=== PATIENT | female | born 1940 | race African-American/Black ===

== ENCOUNTER 2018-02-03 12:11 | Emergency (ER) | payer MEDICARE ==
[2018-02-03] MEDS: SOD CHLORIDE 0.9% 500 ML IV (12:37)
[2018-02-03 12:46] LABS: ADD MAN DIFF? NO
[2018-02-03 12:49] LABS: BASOPHILS % 0.4 % (0.0-2.0); EOSINOPHILS # 0.5 10^3/ul (0.0-0.5); EOSINOPHILS % 5.4 % (0.0-7.0); HEMATOCRIT 38.7 % (37.0-47.0); HEMOGLOBIN 12.5 g/dl (12.0-16.0); LYMPHOCYTES # 4.2 10^3/ul (0.8-2.9); LYMPHOCYTES % 41.8 % (15.0-51.0); MEAN CORPUSCULAR HGB CONC 32.3 g/dl (32.0-37.0); MEAN CORPUSCULAR VOLUME 86.8 fl (82.0-101.0); MEAN PLATELET VOLUME 11.3 fl (7.4-10.4); MONOCYTE # 0.7 10^3/ul (0.3-0.9); MONOCYTES % 7.3 % (0.0-11.0); NEUTROPHIL # 4.5 10^3/ul (1.6-7.5); NEUTROPHILS % 44.8 % (39.0-77.0); PLATELET COUNT 311 10^3/UL (140-415); RED BLOOD COUNT 4.46 10^6/ul (4.20-5.40); RED CELL DISTRIBUTION WIDTH 14.4 % (11.5-14.5)
[2018-02-03 12:49] LABS: WHITE BLOOD COUNT 10.1 10^3/ul (4.8-10.8)
[2018-02-03 13:07] LABS: ANION GAP 17 (8-16); BLOOD UREA NITROGEN 18 mg/dl (7-20); CALCIUM 10.1 mg/dl (8.4-10.2); CARBON DIOXIDE 27 mmol/L (21-31); CHLORIDE 105 mmol/L (97-110); CREATININE 0.57 mg/dl (0.44-1.00); GLUCOSE 104 mg/dl (70-220); SODIUM 145 mmol/L (135-144)
[2018-02-03 13:08] LABS: PROTIME 14.4 Sec (11.9-14.9); PT RATIO 1.1
[2018-02-03 13:21] LABS: TROPONIN-I < 0.012 ng/ml (0.00-0.12)
[2018-02-03 15:04] LABS: ADD UMIC YES; UR ASCORBIC ACID NEGATIVE (NEGATIVE); UR BILIRUBIN (Dip) NEGATIVE (NEGATIVE); UR BLOOD (Dip) 3+ mg/dL (NEGATIVE); UR CLARITY TURBID (CLEAR); UR COLOR RED (YELLOW); UR GLUCOSE (Dip) 1+ mg/dL (NEGATIVE); UR KETONES (Dip) NEGATIVE (NEGATIVE); UR LEUKOCYTE ESTERASE (Dip) 2+ Leu/ul (NEGATIVE); UR NITRITE (Dip) NEGATIVE (NEGATIVE); UR RBC > 182 /HPF (0-5); UR SPECIFIC GRAVITY (Dip) 1.021 (1.003-1.030); UR TOTAL PROTEIN (Dip) 2+ mg/dl (NEGATIVE); UR UROBILINOGEN (Dip) NEGATIVE (NEGATIVE); UR WBC > 182 /HPF (0-5)
== END 2018-02-03 15:35 | disposition home or self-care (01) ==
LOC: E/R 12:11
DX: S09.90XA Unspecified injury of head, initial encounter (principal); N30.01 Acute cystitis with hematuria; W22.8XXA Striking against or struck by other objects, initial encounter; Y92.9 Unspecified place or not applicable
CPT/HCPCS: 36415; 70450; 71045; 80048; 81001; 84484; 85025; 85610; 85730; 87086; 93005; 99285-25

== ENCOUNTER 2018-02-09 15:39 | Inpatient (IN) | payer MEDICARE ==
[2018-02-09 16:39] LABS: ADD MAN DIFF? NO
[2018-02-09 16:41] LABS: WHITE BLOOD COUNT 13.2 10^3/ul (4.8-10.8)
[2018-02-09 16:41] LABS: BASOPHIL # 0.1 10^3/ul (0.0-0.1); BASOPHILS % 0.5 % (0.0-2.0); EOSINOPHILS # 0.2 10^3/ul (0.0-0.5); EOSINOPHILS % 1.4 % (0.0-7.0); HEMATOCRIT 37.8 % (37.0-47.0); HEMOGLOBIN 12.1 g/dl (12.0-16.0); LYMPHOCYTES # 2.7 10^3/ul (0.8-2.9); LYMPHOCYTES % 20.2 % (15.0-51.0); MEAN CORPUSCULAR HEMOGLOBIN 27.8 pg (29.0-33.0); MEAN CORPUSCULAR VOLUME 86.7 fl (82.0-101.0); MONOCYTE # 1.2 10^3/ul (0.3-0.9); MONOCYTES % 9.1 % (0.0-11.0); NEUTROPHIL # 9.1 10^3/ul (1.6-7.5); NEUTROPHILS % 68.5 % (39.0-77.0); PLATELET COUNT 267 10^3/UL (140-415); RED BLOOD COUNT 4.36 10^6/ul (4.20-5.40); RED CELL DISTRIBUTION WIDTH 13.9 % (11.5-14.5)
[2018-02-09] MEDS: ACETAMINOPHEN 500 MG TAB PO (16:48)
[2018-02-09] MEDS: SOD CHLORIDE 0.9% 500 ML IV (16:52)
[2018-02-09 17:21] LABS: ANION GAP 19 (8-16); BLOOD UREA NITROGEN 25 mg/dl (7-20); CARBON DIOXIDE 29 mmol/L (21-31); CHLORIDE 99 mmol/L (97-110); CREATININE 0.61 mg/dl (0.44-1.00); GLUCOSE 95 mg/dl (70-220); POTASSIUM 3.7 mmol/L (3.5-5.1); SODIUM 143 mmol/L (135-144)
[2018-02-09] MEDS ORDERED: ACETAMINOPHEN 325 MG TAB PO ×2 (18:00)
[2018-02-09] MEDS ORDERED: ONDANSETRON 4 MG INJ IV ×2 (18:00)
[2018-02-09] MEDS ORDERED: DOCUSATE SODIUM 100 MG CAP PO (18:00)
[2018-02-09] MEDS ORDERED: MAGNESIUM HYDROXIDE 30ML CUP PO (18:00)
[2018-02-09] MEDS ORDERED: MECLIZINE 25 MG TAB PO (18:00)
[2018-02-09] MEDS ORDERED: NACL 0.9% 3 ML SYG IV (18:00)
[2018-02-09] MEDS: morphine 2 MG INJ IV (20:44)
[2018-02-09] MEDS: NITROFURANTOIN (SR) 100 MG CAP PO (22:22)
[2018-02-09] MEDS: METOPROLOL (XL) 25 MG TAB PO (22:23)
[2018-02-09] MEDS: SOD CHLORIDE 0.9% 1,000 ML IV (22:24)
[2018-02-09] MEDS: HEPARIN 5,000 UNIT/0.5 ML VIAL SC (22:33)
[2018-02-10] MEDS: morphine 2 MG INJ IV (02:54)
[2018-02-10 05:04] LABS: ADD MAN DIFF? NO
[2018-02-10 05:07] LABS: BASOPHIL # 0.1 10^3/ul (0.0-0.1); BASOPHILS % 0.5 % (0.0-2.0); EOSINOPHILS # 0.4 10^3/ul (0.0-0.5); HEMOGLOBIN 10.9 g/dl (12.0-16.0); LYMPHOCYTES # 3.1 10^3/ul (0.8-2.9); LYMPHOCYTES % 30.7 % (15.0-51.0); MEAN CORPUSCULAR HEMOGLOBIN 27.7 pg (29.0-33.0); MEAN CORPUSCULAR HGB CONC 32.1 g/dl (32.0-37.0); MEAN CORPUSCULAR VOLUME 86.3 fl (82.0-101.0); MEAN PLATELET VOLUME 10.7 fl (7.4-10.4); MONOCYTE # 1.1 10^3/ul (0.3-0.9); NEUTROPHIL # 5.4 10^3/ul (1.6-7.5); NEUTROPHILS % 53.5 % (39.0-77.0); PLATELET COUNT 244 10^3/UL (140-415); RED BLOOD COUNT 3.94 10^6/ul (4.20-5.40)
[2018-02-10 05:07] LABS: WHITE BLOOD COUNT 10.2 10^3/ul (4.8-10.8)
[2018-02-10 05:33] LABS: ALANINE AMINOTRANSFERASE 15 IU/L (13-69); ALBUMIN 3.6 g/dl (3.3-4.9); ALBUMIN/GLOBULIN RATIO 0.97; ALKALINE PHOSPHATASE 83 IU/L (42-121); ANION GAP 13 (8-16); ASPARTATE AMINO TRANSFERASE 14 IU/L (15-46); BILIRUBIN,INDIRECT 0.2 mg/dl (0-1.1); BILIRUBIN,TOTAL 0.2 mg/dl (0.2-1.3); BLOOD UREA NITROGEN 27 mg/dl (7-20); CALCIUM 9.6 mg/dl (8.4-10.2); CARBON DIOXIDE 28 mmol/L (21-31); CHLORIDE 106 mmol/L (97-110); CREATININE 0.57 mg/dl (0.44-1.00); GLUCOSE 104 mg/dl (70-220); MAGNESIUM 1.5 mg/dl (1.7-2.5); POTASSIUM 3.4 mmol/L (3.5-5.1); SODIUM 144 mmol/L (135-144); TOTAL PROTEIN 7.3 g/dl (6.1-8.1)
[2018-02-10] MEDS: PANTOPRAZOLE (EC) 40 MG TAB PO (06:10)
[2018-02-10] MEDS: HEPARIN 5,000 UNIT/0.5 ML VIAL SC ×3 (06:14→21:05)
[2018-02-10] MEDS: HYDROCODONE/APAP (5/325) TAB PO ×2 (06:15→12:39)
[2018-02-10] MEDS: NITROFURANTOIN (SR) 100 MG CAP PO ×2 (09:24→21:01)
[2018-02-10] MEDS: METOPROLOL (XL) 25 MG TAB PO ×2 (09:24→21:02)
[2018-02-10] MEDS: POTASSIUM CHLORIDE (SR) 20 MEQ TAB PO (12:37)
[2018-02-10] MEDS: MAGNESIUM OXIDE 400 MG TAB PO (12:37)
[2018-02-10] MEDS: NICOTINE (14 MG/24 HR) PATCH TRANSDERM (14:18)
[2018-02-10] MEDS: LORAZEPAM 0.5 MG TAB PO (22:56)
[2018-02-11] MEDS: PANTOPRAZOLE (EC) 40 MG TAB PO (05:08)
[2018-02-11] MEDS: HEPARIN 5,000 UNIT/0.5 ML VIAL SC ×3 (05:21→22:05)
[2018-02-11 05:34] LABS: ADD MAN DIFF? NO
[2018-02-11 05:40] LABS: WHITE BLOOD COUNT 9.4 10^3/ul (4.8-10.8)
[2018-02-11 05:40] LABS: BASOPHIL # 0.1 10^3/ul (0.0-0.1); BASOPHILS % 0.7 % (0.0-2.0); EOSINOPHILS # 0.3 10^3/ul (0.0-0.5); EOSINOPHILS % 3.6 % (0.0-7.0); HEMATOCRIT 31.8 % (37.0-47.0); HEMOGLOBIN 10.2 g/dl (12.0-16.0); LYMPHOCYTES # 2.8 10^3/ul (0.8-2.9); LYMPHOCYTES % 29.6 % (15.0-51.0); MEAN CORPUSCULAR HEMOGLOBIN 27.9 pg (29.0-33.0); MEAN CORPUSCULAR HGB CONC 32.1 g/dl (32.0-37.0); MEAN CORPUSCULAR VOLUME 86.9 fl (82.0-101.0); MEAN PLATELET VOLUME 11.6 fl (7.4-10.4); MONOCYTE # 0.8 10^3/ul (0.3-0.9); MONOCYTES % 8.1 % (0.0-11.0); NEUTROPHIL # 5.4 10^3/ul (1.6-7.5); NEUTROPHILS % 57.8 % (39.0-77.0); PLATELET COUNT 256 10^3/UL (140-415); RED BLOOD COUNT 3.66 10^6/ul (4.20-5.40)
[2018-02-11 05:53] LABS: ANION GAP 13 (8-16); BLOOD UREA NITROGEN 21 mg/dl (7-20); CALCIUM 9.7 mg/dl (8.4-10.2); CARBON DIOXIDE 27 mmol/L (21-31); CHLORIDE 109 mmol/L (97-110); CREATININE 0.46 mg/dl (0.44-1.00); GLUCOSE 110 mg/dl (70-220); MAGNESIUM 1.5 mg/dl (1.7-2.5); POTASSIUM 3.7 mmol/L (3.5-5.1); SODIUM 145 mmol/L (135-144)
[2018-02-11] MEDS: BISACODYL (EC) 5 MG TAB PO ×2 (05:56→06:37)
[2018-02-11] MEDS: LORAZEPAM 0.5 MG TAB PO (06:37)
[2018-02-11] MEDS: NITROFURANTOIN (SR) 100 MG CAP PO (10:20)
[2018-02-11] MEDS: NICOTINE (14 MG/24 HR) PATCH TRANSDERM (10:21)
[2018-02-11] MEDS: METOPROLOL (XL) 25 MG TAB PO ×2 (10:21→20:14)
[2018-02-11] MEDS: MAGNESIUM OXIDE 400 MG TAB PO (13:07)
[2018-02-11] MEDS: AMLODIPINE 5 MG TAB PO (13:07)
[2018-02-11] MEDS: hydrALAzine 20 MG INJ IV (17:08)
[2018-02-11] MEDS: HYDROCODONE/APAP (5/325) TAB PO (20:13)
[2018-02-12 05:10] LABS: ADD MAN DIFF? NO
[2018-02-12 05:16] LABS: BASOPHIL # 0.1 10^3/ul (0.0-0.1); BASOPHILS % 0.6 % (0.0-2.0); EOSINOPHILS # 0.3 10^3/ul (0.0-0.5); EOSINOPHILS % 3.7 % (0.0-7.0); HEMATOCRIT 33.9 % (37.0-47.0); HEMOGLOBIN 11.1 g/dl (12.0-16.0); LYMPHOCYTES # 3.2 10^3/ul (0.8-2.9); MEAN CORPUSCULAR HEMOGLOBIN 27.6 pg (29.0-33.0); MEAN CORPUSCULAR HGB CONC 32.7 g/dl (32.0-37.0); MEAN CORPUSCULAR VOLUME 84.3 fl (82.0-101.0); MEAN PLATELET VOLUME 11.3 fl (7.4-10.4); MONOCYTE # 0.8 10^3/ul (0.3-0.9); MONOCYTES % 9.4 % (0.0-11.0); NEUTROPHIL # 4.2 10^3/ul (1.6-7.5); NEUTROPHILS % 49.1 % (39.0-77.0); PLATELET COUNT 298 10^3/UL (140-415); RED BLOOD COUNT 4.02 10^6/ul (4.20-5.40); RED CELL DISTRIBUTION WIDTH 14.2 % (11.5-14.5)
[2018-02-12 05:16] LABS: WHITE BLOOD COUNT 8.6 10^3/ul (4.8-10.8)
[2018-02-12 05:35] LABS: ANION GAP 11 (8-16); BLOOD UREA NITROGEN 21 mg/dl (7-20); CALCIUM 9.8 mg/dl (8.4-10.2); CARBON DIOXIDE 30 mmol/L (21-31); CHLORIDE 105 mmol/L (97-110); CREATININE 0.55 mg/dl (0.44-1.00); GLUCOSE 107 mg/dl (70-220); MAGNESIUM 1.5 mg/dl (1.7-2.5); PHOSPHORUS 3.5 mg/dl (2.5-4.9); POTASSIUM 3.3 mmol/L (3.5-5.1); SODIUM 143 mmol/L (135-144)
[2018-02-12] MEDS: PANTOPRAZOLE (EC) 40 MG TAB PO (06:24)
[2018-02-12] MEDS: HEPARIN 5,000 UNIT/0.5 ML VIAL SC ×2 (06:26→14:40)
[2018-02-12] MEDS: NICOTINE (14 MG/24 HR) PATCH TRANSDERM (09:06)
[2018-02-12] MEDS: AMLODIPINE 10 MG TAB PO (09:07)
[2018-02-12] MEDS: METOPROLOL (XL) 25 MG TAB PO (09:08)
[2018-02-12] MEDS: MAGNESIUM SULFATE 2 GM/50 ML 50 ML IVPB (11:14)
[2018-02-12] MEDS: POTASSIUM CHLORIDE (SR) 20 MEQ TAB PO (11:15)
[2018-02-12] MEDS: MAGNESIUM OXIDE 400 MG TAB PO (13:49)
[2018-02-12] MEDS: HYDROCODONE/APAP (5/325) TAB PO (13:52)
== END 2018-02-12 17:55 | DRG 535 ==
LOC: E/R 15:39 → MS1 17:42
DX: S32.592A Other specified fracture of left pubis, initial encounter for closed fracture (principal); E43 Unspecified severe protein-calorie malnutrition; N39.0 Urinary tract infection, site not specified; Z68.1 Body mass index [BMI] 19.9 or less, adult; W19.XXXA Unspecified fall, initial encounter; Y92.002 Bathroom of unspecified non-institutional (private) residence as the place of occurrence of the external cause; F03.90 Unspecified dementia, unspecified severity, without behavioral disturbance, psychotic disturbance, mood disturbance, and anxiety; I10 Essential (primary) hypertension; K21.9 Gastro-esophageal reflux disease without esophagitis; R42 Dizziness and giddiness
CPT/HCPCS: 72192; 80048; 80053; 83735; 84100; 85025; 96374; 97163; 97166; 99285-25

== ENCOUNTER 2018-03-16 12:11 | Inpatient (IN) | payer MEDICARE ==
[2018-03-16] MEDS ORDERED: CEFTRIAXONE 1 GM/50 ML (PMX) 50 ML IVPB (12:24)
[2018-03-16] MEDS: SODIUM CHLORIDE 0.9% 1L BAG IV* (12:30)
[2018-03-16] MEDS: ONDANSETRON 4 MG INJ IV ×2 (12:32→14:06)
[2018-03-16] MEDS: morphine 4 MG/ML VIAL IV (12:32)
[2018-03-16 12:38] LABS: ADD MAN DIFF? NO
[2018-03-16 12:40] LABS: WHITE BLOOD COUNT 24.2 10^3/ul (4.8-10.8)
[2018-03-16 12:40] LABS: ABNORMAL IP MESSAGE 1; BASOPHIL # 0.1 10^3/ul (0.0-0.1); BASOPHILS % 0.4 % (0.0-2.0); EOSINOPHILS # 0.6 10^3/ul (0.0-0.5); EOSINOPHILS % 2.3 % (0.0-7.0); HEMATOCRIT 35.4 % (37.0-47.0); HEMOGLOBIN 11.4 g/dl (12.0-16.0); LYMPHOCYTES # 3.5 10^3/ul (0.8-2.9); LYMPHOCYTES % 14.3 % (15.0-51.0); MEAN CORPUSCULAR HGB CONC 32.2 g/dl (32.0-37.0); MEAN CORPUSCULAR VOLUME 83.9 fl (82.0-101.0); MEAN PLATELET VOLUME 10.8 fl (7.4-10.4); MONOCYTE # 1.6 10^3/ul (0.3-0.9); MONOCYTES % 6.8 % (0.0-11.0); NEUTROPHIL # 18.3 10^3/ul (1.6-7.5); NEUTROPHILS % 75.6 % (39.0-77.0); PLATELET COUNT 468 10^3/UL (140-415); RED BLOOD COUNT 4.22 10^6/ul (4.20-5.40); RED CELL DISTRIBUTION WIDTH 15.2 % (11.5-14.5)
[2018-03-16 12:44] LABS: ADD UMIC NO; UR ASCORBIC ACID NEGATIVE (NEGATIVE); UR BILIRUBIN (Dip) NEGATIVE (NEGATIVE); UR BLOOD (Dip) NEGATIVE (NEGATIVE); UR CLARITY CLEAR (CLEAR); UR COLOR YELLOW (YELLOW); UR GLUCOSE (Dip) NEGATIVE (NEGATIVE); UR KETONES (Dip) TRACE mg/dL (NEGATIVE); UR LEUKOCYTE ESTERASE (Dip) NEGATIVE Leu/ul (NEGATIVE); UR NITRITE (Dip) NEGATIVE (NEGATIVE); UR SPECIFIC GRAVITY (Dip) 1.013 (1.003-1.030); UR TOTAL PROTEIN (Dip) NEGATIVE (NEGATIVE); UR UROBILINOGEN (Dip) NEGATIVE (NEGATIVE)
[2018-03-16 13:01] LABS: ALANINE AMINOTRANSFERASE 20 IU/L (13-69); ALBUMIN 3.6 g/dl (3.3-4.9); ALBUMIN/GLOBULIN RATIO 0.87; ALKALINE PHOSPHATASE 124 IU/L (42-121); AMYLASE 33 U/L (11-123); ANION GAP 13 (8-16); ASPARTATE AMINO TRANSFERASE 18 IU/L (15-46); BILIRUBIN,INDIRECT 0.5 mg/dl (0-1.1); BILIRUBIN,TOTAL 0.5 mg/dl (0.2-1.3); BLOOD UREA NITROGEN 11 mg/dl (7-20); CALCIUM 9.3 mg/dl (8.4-10.2); CARBON DIOXIDE 30 mmol/L (21-31); CHLORIDE 105 mmol/L (97-110); CREATININE 0.52 mg/dl (0.44-1.00); GLUCOSE 108 mg/dl (70-220); LIPASE 21 U/L (23-300); SODIUM 145 mmol/L (135-144); TOTAL PROTEIN 7.7 g/dl (6.1-8.1)
[2018-03-16 13:03] LABS: LACTIC ACID 1.5 mmol/L (0.5-2.0)
[2018-03-16] MEDS: LEVOFLOXACIN 500MG/D5W (PMX) 100 ML IVPB (13:05)
[2018-03-16 13:10] LABS: POTASSIUM 2.9 mmol/L (3.5-5.1)
[2018-03-16 13:13] LABS: TROPONIN-I 0.018 ng/ml (0.000-0.120)
[2018-03-16 13:17] LABS: INR 1.19; PROTIME 15.3 Sec (11.9-14.9); PT RATIO 1.2
[2018-03-16 13:19] LABS: PARTIAL THROMBOPLASTIN TIME 35.4 Sec (25.0-35.0)
[2018-03-16] MEDS: POTASSIUM CHLORIDE 100 ML IVPB (13:30)
[2018-03-16] MEDS: IODIXANOL LOCM 100 ML BTL (13:55)
[2018-03-16] MEDS: SOD CHLORIDE 0.9% 100 ML ×2 (13:55→19:13)
[2018-03-16] MEDS: morphine 2 MG INJ IV (14:06)
[2018-03-16] MEDS: metroNIDAZOLE 500 MG/NS (PMX) 100 ML IVPB (15:59)
[2018-03-16] MEDS: LORAZEPAM 2 MG INJ IV (16:21)
[2018-03-16] MEDS ORDERED: ONDANSETRON 4 MG INJ IV (17:00)
[2018-03-16] MEDS: DILTIAZEM 50 MG INJ IV (17:19)
[2018-03-16] MEDS: SOD CHLORIDE 0.9% 1,000 ML IV (18:17)
[2018-03-16] MEDS ORDERED: NACL 0.9% 3 ML SYG IV (18:30)
[2018-03-16 18:39] LABS: ANION GAP 18 (8-16); BLOOD UREA NITROGEN 11 mg/dl (7-20); CALCIUM 8.6 mg/dl (8.4-10.2); CARBON DIOXIDE 23 mmol/L (21-31); CHLORIDE 108 mmol/L (97-110); CREATININE 0.59 mg/dl (0.44-1.00); GLUCOSE 102 mg/dl (70-220); POTASSIUM 3.5 mmol/L (3.5-5.1); SODIUM 145 mmol/L (135-144)
[2018-03-16 18:46] LABS: D-DIMER 3886.86 ng/ml (<460)
[2018-03-16 18:50] LABS: TROPONIN-I 0.021 ng/ml (0.000-0.120)
[2018-03-16] MEDS: ACETAMINOPHEN 325 MG TAB PO (18:53)
[2018-03-16] MEDS: IOHEXOL 350MG/ML 50 ML BTL (19:13)
[2018-03-16] MEDS: IOHEXOL 100 ML (19:13)
[2018-03-16] MEDS ORDERED: ENOXAPARIN 60 MG/0.6 ML SYG SC (19:30)
[2018-03-16 20:36] LABS: LACTIC ACID 0.9 mmol/L (0.5-2.0)
[2018-03-16] MEDS: DEXTROSE 5%-0.45% NACL 1,000 ML IV (20:54)
[2018-03-16] MEDS: MEROPENEM 1 GM/50ML(PMX) 50 ML IVPB (22:30)
[2018-03-16] MEDS: ENOXAPARIN 60 MG/0.6 ML SYG SC (22:42)
[2018-03-17] MEDS ORDERED: MECLIZINE 25 MG TAB PO
[2018-03-17] MEDS: SOD CHLORIDE 0.9% 500 ML IV (00:12)
[2018-03-17] MEDS ORDERED: hydrALAzine 20 MG INJ IV (00:30)
[2018-03-17] MEDS ORDERED: PENDING SANTYL ORDER FOR WOUND CARE XX (01:30)
[2018-03-17] MEDS: HYDROmorphONE 0.5 MG/0.5 ML SYG IV ×2 (04:43→13:35)
[2018-03-17] MEDS: MEROPENEM 1 GM/50ML(PMX) 50 ML IVPB ×3 (06:43→22:27)
[2018-03-17] MEDS: DEXTROSE 5%-0.45% NACL 1,000 ML IV (07:49)
[2018-03-17] MEDS ORDERED: AMLODIPINE 10 MG TAB PO (09:00)
[2018-03-17] MEDS ORDERED: ENOXAPARIN 40 MG/0.4 ML SYG SC (09:00)
[2018-03-17] MEDS ORDERED: VANCOMYCIN IV PER PHARMACY XX (10:00)
[2018-03-17 12:14] LABS: ADD MAN DIFF? NO
[2018-03-17 12:25] LABS: WHITE BLOOD COUNT 19.8 10^3/ul (4.8-10.8)
[2018-03-17 12:25] LABS: ABNORMAL IP MESSAGE 1; BASOPHIL # 0.1 10^3/ul (0.0-0.1); BASOPHILS % 0.3 % (0.0-2.0); EOSINOPHILS # 0.1 10^3/ul (0.0-0.5); EOSINOPHILS % 0.5 % (0.0-7.0); HEMATOCRIT 30.1 % (37.0-47.0); HEMOGLOBIN 9.5 g/dl (12.0-16.0); LYMPHOCYTES # 1.8 10^3/ul (0.8-2.9); LYMPHOCYTES % 9.3 % (15.0-51.0); MEAN CORPUSCULAR HEMOGLOBIN 26.5 pg (29.0-33.0); MEAN CORPUSCULAR HGB CONC 31.6 g/dl (32.0-37.0); MEAN CORPUSCULAR VOLUME 83.8 fl (82.0-101.0); MEAN PLATELET VOLUME 10.2 fl (7.4-10.4); MONOCYTE # 1.8 10^3/ul (0.3-0.9); MONOCYTES % 8.9 % (0.0-11.0); NEUTROPHIL # 15.9 10^3/ul (1.6-7.5); NEUTROPHILS % 80.4 % (39.0-77.0); PLATELET COUNT 413 10^3/UL (140-415); RED BLOOD COUNT 3.59 10^6/ul (4.20-5.40); RED CELL DISTRIBUTION WIDTH 15.6 % (11.5-14.5)
[2018-03-17 12:26] LABS: HEMOGLOBIN A1C 5.9 % (0-5.9)
[2018-03-17 12:31] LABS: POSITIVE DIFF @See below
[2018-03-17 12:39] LABS: ALANINE AMINOTRANSFERASE 23 IU/L (13-69); ALBUMIN 2.9 g/dl (3.3-4.9); ALBUMIN/GLOBULIN RATIO 0.82; ALKALINE PHOSPHATASE 100 IU/L (42-121); ANION GAP 12 (8-16); ASPARTATE AMINO TRANSFERASE 17 IU/L (15-46); BILIRUBIN,INDIRECT 0.4 mg/dl (0-1.1); BILIRUBIN,TOTAL 0.4 mg/dl (0.2-1.3); BLOOD UREA NITROGEN 6 mg/dl (7-20); CALCIUM 8.5 mg/dl (8.4-10.2); CARBON DIOXIDE 27 mmol/L (21-31); CHLORIDE 110 mmol/L (97-110); CREATININE 0.48 mg/dl (0.44-1.00); GLUCOSE 119 mg/dl (70-220); SODIUM 146 mmol/L (135-144); TOTAL PROTEIN 6.4 g/dl (6.1-8.1)
[2018-03-17] MEDS: VANCOMYCIN 1 GM 250 ML IVPB (13:35)
[2018-03-17] MEDS: POTASSIUM CHLORIDE 100 ML IVPB ×3 (14:21→18:57)
[2018-03-17] MEDS ORDERED: FUROSEMIDE 20 MG INJ (17:20)
[2018-03-17] MEDS: FUROSEMIDE 20 MG INJ IV ×2 (17:22→18:54)
[2018-03-17] MEDS: METOPROLOL 5 MG INJ IV (17:27)
[2018-03-17] MEDS: ACETAMINOPHEN 325 MG TAB PO (17:36)
[2018-03-17 19:17] LABS: LACTIC ACID 1.5 mmol/L (0.5-2.0)
[2018-03-17] MEDS: VANCOMYCIN 500MG/NS (PMX) 100 ML IVPB (23:43)
[2018-03-18] MEDS: MEROPENEM 1 GM/50ML(PMX) 50 ML IVPB ×3 (05:49→21:32)
[2018-03-18] MEDS: POTASSIUM CHLORIDE 100 ML IVPB ×3 (11:44→13:00)
[2018-03-18] MEDS: VANCOMYCIN 500MG/NS (PMX) 100 ML IVPB (12:44)
[2018-03-18] MEDS: POTASSIUM CHLORIDE (SR) 20 MEQ TAB PO (14:03)
[2018-03-19] MEDS: MEROPENEM 1 GM/50ML(PMX) 50 ML IVPB ×3 (05:48→22:00)
[2018-03-19] MEDS: HEPARIN 5,000 UNIT/0.5 ML VIAL SC ×2 (15:07→21:15)
[2018-03-19 15:44] LABS: ADD MAN DIFF? NO
[2018-03-19 15:50] LABS: WHITE BLOOD COUNT 21.5 10^3/ul (4.8-10.8)
[2018-03-19 15:50] LABS: BASOPHIL # 0.1 10^3/ul (0.0-0.1); BASOPHILS % 0.3 % (0.0-2.0); EOSINOPHILS # 0.3 10^3/ul (0.0-0.5); EOSINOPHILS % 1.3 % (0.0-7.0); HEMATOCRIT 32.2 % (37.0-47.0); HEMOGLOBIN 10.3 g/dl (12.0-16.0); LYMPHOCYTES # 2.6 10^3/ul (0.8-2.9); LYMPHOCYTES % 12.1 % (15.0-51.0); MEAN CORPUSCULAR HEMOGLOBIN 26.6 pg (29.0-33.0); MEAN CORPUSCULAR VOLUME 83.2 fl (82.0-101.0); MEAN PLATELET VOLUME 10.9 fl (7.4-10.4); MONOCYTE # 1.1 10^3/ul (0.3-0.9); MONOCYTES % 5.1 % (0.0-11.0); NEUTROPHIL # 17.3 10^3/ul (1.6-7.5); NEUTROPHILS % 80.2 % (39.0-77.0); PLATELET COUNT 491 10^3/UL (140-415); RED BLOOD COUNT 3.87 10^6/ul (4.20-5.40); RED CELL DISTRIBUTION WIDTH 15.9 % (11.5-14.5)
[2018-03-19 16:07] LABS: ANION GAP 13 (8-16); BLOOD UREA NITROGEN 10 mg/dl (7-20); CALCIUM 8.8 mg/dl (8.4-10.2); CARBON DIOXIDE 30 mmol/L (21-31); CHLORIDE 104 mmol/L (97-110); CREATININE 0.44 mg/dl (0.44-1.00); GLUCOSE 112 mg/dl (70-220); POTASSIUM 3.3 mmol/L (3.5-5.1); SODIUM 144 mmol/L (135-144)
[2018-03-19] MEDS: POTASSIUM CHLORIDE (SR) 20 MEQ TAB PO (18:13)
[2018-03-20] MEDS: MEROPENEM 1 GM/50ML(PMX) 50 ML IVPB ×2 (05:45→14:00)
[2018-03-20] MEDS: ACETAMINOPHEN 325 MG TAB PO (10:30)
[2018-03-20] MEDS: HEPARIN 5,000 UNIT/0.5 ML VIAL SC (10:36)
[2018-03-20] MEDS: VANCOMYCIN HCL 250 MG/5ML POSYG PO ×2 (18:13→23:38)
[2018-03-20] MEDS: HYDROCODONE/APAP (5/325) TAB PO ×2 (18:13→23:42)
[2018-03-21] MEDS: VANCOMYCIN HCL 250 MG/5ML POSYG PO ×4 (05:37→23:12)
[2018-03-21] MEDS: METOPROLOL 50 MG TAB PO (06:45)
[2018-03-22] MEDS: HYDROCODONE/APAP (5/325) TAB PO ×2 (02:10→12:33)
[2018-03-22] MEDS: VANCOMYCIN HCL 250 MG/5ML POSYG PO ×4 (05:21→21:16)
[2018-03-22 08:35] LABS: ABNORMAL IP MESSAGE 1; HEMATOCRIT 33.9 % (37.0-47.0); HEMOGLOBIN 10.8 g/dl (12.0-16.0); MEAN CORPUSCULAR HEMOGLOBIN 26.5 pg (29.0-33.0); MEAN CORPUSCULAR HGB CONC 31.9 g/dl (32.0-37.0); MEAN CORPUSCULAR VOLUME 83.1 fl (82.0-101.0); MEAN PLATELET VOLUME 10.6 fl (7.4-10.4); PLATELET COUNT 556 10^3/UL (140-415); RED BLOOD COUNT 4.08 10^6/ul (4.20-5.40)
[2018-03-22 08:35] LABS: WHITE BLOOD COUNT 40.5 10^3/ul (4.8-10.8)
[2018-03-22 08:49] LABS: ADD MAN DIFF? YES; POSITIVE DIFF @See below
[2018-03-22 08:57] LABS: ANION GAP 15 (8-16); BLOOD UREA NITROGEN 11 mg/dl (7-20); CALCIUM 8.8 mg/dl (8.4-10.2); CARBON DIOXIDE 27 mmol/L (21-31); CHLORIDE 102 mmol/L (97-110); CREATININE 0.64 mg/dl (0.44-1.00); GLUCOSE 92 mg/dl (70-220); SODIUM 141 mmol/L (135-144)
[2018-03-22] MEDS: AMLODIPINE 10 MG TAB PO (09:13)
[2018-03-22 09:42] LABS: ANISOCYTOSIS 1+ (0-0); BAND NEUTROPHILS #M 2.8 10^3/ul (0.0-0.6); BAND NEUTROPHILS % (M) 7 % (0-4); EOSINOPHILS % (M) 1 % (0-7); HYPOCHROMASIA 2+ (0-0); LYMPHOCYTES #M 4.4 10^3/ul (0.8-2.9); LYMPHOCYTES % (M) 11 % (15-51); MONOCYTES % (M) 5 % (0-11); PLATELET ESTIMATE NORMAL; POIKILOCYTOSIS 2+ (0-0); POLYCHROMASIA 1+ (0-0); SEG NEUT #M 31.9 10^3/ul (1.6-7.5); SEGMENTED NEUTROPHILS (M) % 76 % (39-77); SMUDGE%M 2 % (0-0)
[2018-03-22] MEDS ORDERED: metroNIDAZOLE 500 MG/NS (PMX) 100 ML IVPB (11:30)
[2018-03-22] MEDS: CHOLESTYRAMINE 4 GM PACKET PO (12:32)
[2018-03-22] MEDS: POTASSIUM CHLORIDE (SR) 20 MEQ TAB PO (12:32)
[2018-03-22] MEDS: metroNIDAZOLE 500 MG TAB PO ×2 (13:37→21:13)
[2018-03-22] MEDS ORDERED: ZOLPIDEM 5 MG TAB PO (14:30)
[2018-03-23] MEDS: VANCOMYCIN HCL 250 MG/5ML POSYG PO ×3 (06:17→17:46)
[2018-03-23] MEDS: metroNIDAZOLE 500 MG TAB PO ×3 (06:17→22:08)
[2018-03-23 08:49] LABS: ADD MAN DIFF? NO
[2018-03-23] MEDS: AMLODIPINE 10 MG TAB PO (08:53)
[2018-03-23] MEDS: CHOLESTYRAMINE 4 GM PACKET PO (08:53)
[2018-03-23 08:54] LABS: ABNORMAL IP MESSAGE 1; BASOPHIL # 0.1 10^3/ul (0.0-0.1); BASOPHILS % 0.3 % (0.0-2.0); EOSINOPHILS # 0.1 10^3/ul (0.0-0.5); EOSINOPHILS % 0.3 % (0.0-7.0); HEMATOCRIT 35.9 % (37.0-47.0); HEMOGLOBIN 11.5 g/dl (12.0-16.0); LYMPHOCYTES # 1.7 10^3/ul (0.8-2.9); LYMPHOCYTES % 4.7 % (15.0-51.0); MEAN CORPUSCULAR HEMOGLOBIN 26.3 pg (29.0-33.0); MEAN PLATELET VOLUME 10.6 fl (7.4-10.4); MONOCYTE # 1.1 10^3/ul (0.3-0.9); MONOCYTES % 3.2 % (0.0-11.0); NEUTROPHIL # 31.5 10^3/ul (1.6-7.5); NEUTROPHILS % 89.8 % (39.0-77.0); PLATELET COUNT 581 10^3/UL (140-415); RED BLOOD COUNT 4.38 10^6/ul (4.20-5.40); RED CELL DISTRIBUTION WIDTH 16.8 % (11.5-14.5)
[2018-03-23 09:02] LABS: POSITIVE DIFF @See below
[2018-03-23 09:15] LABS: PHOSPHORUS 3.4 mg/dl (2.5-4.9)
[2018-03-23 09:15] LABS: MAGNESIUM 1.8 mg/dl (1.7-2.5)
[2018-03-23 09:22] LABS: ANION GAP 15 (8-16); BLOOD UREA NITROGEN 11 mg/dl (7-20); CALCIUM 9.1 mg/dl (8.4-10.2); CARBON DIOXIDE 27 mmol/L (21-31); CHLORIDE 105 mmol/L (97-110); CREATININE 0.63 mg/dl (0.44-1.00); GLUCOSE 110 mg/dl (70-220); POTASSIUM 3.5 mmol/L (3.5-5.1); SODIUM 143 mmol/L (135-144)
[2018-03-24] MEDS: VANCOMYCIN HCL 250 MG/5ML POSYG PO ×5 (01:04→23:51)
[2018-03-24] MEDS: metroNIDAZOLE 500 MG TAB PO ×3 (06:58→22:09)
[2018-03-24] MEDS: CHOLESTYRAMINE 4 GM PACKET PO (09:04)
[2018-03-24] MEDS: AMLODIPINE 10 MG TAB PO (09:05)
[2018-03-24 13:06] LABS: ADD MAN DIFF? NO
[2018-03-24 13:09] LABS: ABNORMAL IP MESSAGE 1; BASOPHIL # 0.1 10^3/ul (0.0-0.1); BASOPHILS % 0.4 % (0.0-2.0); EOSINOPHILS # 0.4 10^3/ul (0.0-0.5); EOSINOPHILS % 1.2 % (0.0-7.0); HEMATOCRIT 36.5 % (37.0-47.0); HEMOGLOBIN 11.4 g/dl (12.0-16.0); LYMPHOCYTES # 4.6 10^3/ul (0.8-2.9); LYMPHOCYTES % 15.7 % (15.0-51.0); MEAN CORPUSCULAR HEMOGLOBIN 25.8 pg (29.0-33.0); MEAN CORPUSCULAR HGB CONC 31.2 g/dl (32.0-37.0); MEAN CORPUSCULAR VOLUME 82.6 fl (82.0-101.0); MEAN PLATELET VOLUME 9.9 fl (7.4-10.4); MONOCYTE # 1.1 10^3/ul (0.3-0.9); MONOCYTES % 3.9 % (0.0-11.0); NEUTROPHIL # 22.8 10^3/ul (1.6-7.5); NEUTROPHILS % 77.8 % (39.0-77.0); PLATELET COUNT 594 10^3/UL (140-415); RED BLOOD COUNT 4.42 10^6/ul (4.20-5.40); RED CELL DISTRIBUTION WIDTH 16.8 % (11.5-14.5)
[2018-03-24 13:09] LABS: WHITE BLOOD COUNT 29.3 10^3/ul (4.8-10.8)
[2018-03-24 13:15] LABS: POSITIVE DIFF @See below
[2018-03-24] MEDS: HYDROCODONE/APAP (7.5/325) TAB GTB (13:23)
[2018-03-24 13:29] LABS: ANION GAP 15 (8-16); BLOOD UREA NITROGEN 12 mg/dl (7-20); CALCIUM 9.1 mg/dl (8.4-10.2); CARBON DIOXIDE 25 mmol/L (21-31); CHLORIDE 102 mmol/L (97-110); CREATININE 0.74 mg/dl (0.44-1.00); GLUCOSE 115 mg/dl (70-220); POTASSIUM 3.5 mmol/L (3.5-5.1); SODIUM 138 mmol/L (135-144)
[2018-03-25] MEDS: VANCOMYCIN HCL 250 MG/5ML POSYG PO ×2 (05:28→12:21)
[2018-03-25] MEDS: metroNIDAZOLE 500 MG TAB PO ×2 (05:28→13:37)
[2018-03-25] MEDS: AMLODIPINE 10 MG TAB PO (08:47)
[2018-03-25] MEDS: CHOLESTYRAMINE 4 GM PACKET PO (08:47)
[2018-03-25] MEDS: HYDROCODONE/APAP (7.5/325) TAB GTB (13:37)
== END 2018-03-25 16:30 | disposition left against medical advice (07) | DRG 871 ==
LOC: E/R 12:11 → MS4 18:25
PROVIDERS: Internal Medicine
DX: A41.9 Sepsis, unspecified organism (principal); G93.41 Metabolic encephalopathy; E43 Unspecified severe protein-calorie malnutrition; N17.9 Acute kidney failure, unspecified; Z68.1 Body mass index [BMI] 19.9 or less, adult; A04.72 Enterocolitis due to Clostridium difficile, not specified as recurrent; E87.6 Hypokalemia; E86.0 Dehydration; I10 Essential (primary) hypertension
CPT/HCPCS: 36415; 71045; 71275; 74177; 80048; 80053; 81003; 82150; 82962; 83036; 83605; 83690; 83735; 84100; 84443; 84484; 85025; 85378; 85610; 85730; 87040; 87075; 87086; 93005; 93306; 96365; 96366; 96368; 96375; 96376; 97110; 97162; 97530; 99285-25

== ENCOUNTER 2018-04-01 10:51 | Inpatient (IN) | payer MEDICARE ==
[2018-04-01 11:35] LABS: ADD MAN DIFF? NO
[2018-04-01 11:43] LABS: BASOPHIL # 0.1 10^3/ul (0.0-0.1); BASOPHILS % 0.7 % (0.0-2.0); EOSINOPHILS # 0.2 10^3/ul (0.0-0.5); EOSINOPHILS % 1.4 % (0.0-7.0); HEMATOCRIT 38.8 % (37.0-47.0); HEMOGLOBIN 12.1 g/dl (12.0-16.0); LYMPHOCYTES # 2.9 10^3/ul (0.8-2.9); LYMPHOCYTES % 22.7 % (15.0-51.0); MEAN CORPUSCULAR HEMOGLOBIN 26.2 pg (29.0-33.0); MEAN CORPUSCULAR HGB CONC 31.2 g/dl (32.0-37.0); MEAN CORPUSCULAR VOLUME 84.2 fl (82.0-101.0); MEAN PLATELET VOLUME 9.6 fl (7.4-10.4); MONOCYTE # 0.5 10^3/ul (0.3-0.9); MONOCYTES % 4.1 % (0.0-11.0); NEUTROPHIL # 8.9 10^3/ul (1.6-7.5); NEUTROPHILS % 70.8 % (39.0-77.0); PLATELET COUNT 797 10^3/UL (140-415); RED BLOOD COUNT 4.61 10^6/ul (4.20-5.40)
[2018-04-01 11:43] LABS: WHITE BLOOD COUNT 12.6 10^3/ul (4.8-10.8)
[2018-04-01 12:02] LABS: LACTIC ACID 2.4 mmol/L (0.5-2.0)
[2018-04-01 12:03] LABS: ALANINE AMINOTRANSFERASE 18 IU/L (13-69); ALBUMIN 4.4 g/dl (3.3-4.9); ALBUMIN/GLOBULIN RATIO 0.83; ALKALINE PHOSPHATASE 121 IU/L (42-121); ANION GAP 20 (8-16); ASPARTATE AMINO TRANSFERASE 29 IU/L (15-46); BILIRUBIN,INDIRECT 0.3 mg/dl (0-1.1); BILIRUBIN,TOTAL 0.3 mg/dl (0.2-1.3); BLOOD UREA NITROGEN 13 mg/dl (7-20); CALCIUM 10.5 mg/dl (8.4-10.2); CARBON DIOXIDE 26 mmol/L (21-31); CHLORIDE 106 mmol/L (97-110); CREATININE 0.73 mg/dl (0.44-1.00); GLUCOSE 98 mg/dl (70-220); POTASSIUM 4.1 mmol/L (3.5-5.1); PROTIME 14.4 Sec (11.9-14.9); PT RATIO 1.1; SODIUM 148 mmol/L (135-144); TOTAL PROTEIN 9.7 g/dl (6.1-8.1)
[2018-04-01 12:14] LABS: TROPONIN-I < 0.012 ng/ml (0.000-0.120)
[2018-04-01 12:19] LABS: PARTIAL THROMBOPLASTIN TIME 34.5 Sec (25.0-35.0)
[2018-04-01 13:19] LABS: ADD UMIC YES; UR ASCORBIC ACID NEGATIVE (NEGATIVE); UR BACTERIA FEW /HPF (NONE SEEN); UR BILIRUBIN (Dip) NEGATIVE (NEGATIVE); UR BLOOD (Dip) NEGATIVE (NEGATIVE); UR CLARITY SLIGHTLY CLOUDY (CLEAR); UR COLOR YELLOW (YELLOW); UR GLUCOSE (Dip) NEGATIVE (NEGATIVE); UR KETONES (Dip) TRACE mg/dL (NEGATIVE); UR LEUKOCYTE ESTERASE (Dip) 1+ Leu/ul (NEGATIVE); UR NITRITE (Dip) NEGATIVE (NEGATIVE); UR RBC 1 /HPF (0-5); UR SPECIFIC GRAVITY (Dip) 1.012 (1.003-1.030); UR TOTAL PROTEIN (Dip) 1+ mg/dl (NEGATIVE); UR UROBILINOGEN (Dip) NEGATIVE (NEGATIVE); UR WBC 20 /HPF (0-5)
[2018-04-01] MEDS: CEFEPIME 1GM/50 ML (PMX) 50 ML IVPB (13:42)
[2018-04-01 13:46] LABS: LACTIC ACID 0.9 mmol/L (0.5-2.0)
[2018-04-01] MEDS: VANCOMYCIN 1 GM (PMX) 250 ML IVPB (14:03)
[2018-04-01] MEDS ORDERED: ACETAMINOPHEN 325 MG TAB PO (15:00)
[2018-04-01] MEDS ORDERED: ONDANSETRON 4 MG INJ IV (15:00)
[2018-04-02 05:15] LABS: ADD MAN DIFF? NO
[2018-04-02 05:17] LABS: BASOPHIL # 0.1 10^3/ul (0.0-0.1); BASOPHILS % 0.6 % (0.0-2.0); EOSINOPHILS # 0.4 10^3/ul (0.0-0.5); EOSINOPHILS % 2.8 % (0.0-7.0); HEMATOCRIT 31.9 % (37.0-47.0); HEMOGLOBIN 10.3 g/dl (12.0-16.0); LYMPHOCYTES # 2.3 10^3/ul (0.8-2.9); LYMPHOCYTES % 15.9 % (15.0-51.0); MEAN CORPUSCULAR HGB CONC 32.3 g/dl (32.0-37.0); MEAN CORPUSCULAR VOLUME 83.7 fl (82.0-101.0); MEAN PLATELET VOLUME 9.6 fl (7.4-10.4); MONOCYTE # 0.8 10^3/ul (0.3-0.9); MONOCYTES % 5.5 % (0.0-11.0); NEUTROPHIL # 10.6 10^3/ul (1.6-7.5); NEUTROPHILS % 74.7 % (39.0-77.0); PLATELET COUNT 676 10^3/UL (140-415); RED BLOOD COUNT 3.81 10^6/ul (4.20-5.40)
[2018-04-02 05:17] LABS: WHITE BLOOD COUNT 14.3 10^3/ul (4.8-10.8)
[2018-04-02 05:44] LABS: ALANINE AMINOTRANSFERASE 14 IU/L (13-69); ALBUMIN 3.4 g/dl (3.3-4.9); ALBUMIN/GLOBULIN RATIO 0.82; ALKALINE PHOSPHATASE 82 IU/L (42-121); ANION GAP 16 (8-16); ASPARTATE AMINO TRANSFERASE 20 IU/L (15-46); BILIRUBIN,INDIRECT 0.3 mg/dl (0-1.1); BILIRUBIN,TOTAL 0.3 mg/dl (0.2-1.3); BLOOD UREA NITROGEN 10 mg/dl (7-20); CALCIUM 9.4 mg/dl (8.4-10.2); CARBON DIOXIDE 27 mmol/L (21-31); CHLORIDE 106 mmol/L (97-110); CREATININE 0.63 mg/dl (0.44-1.00); GLUCOSE 90 mg/dl (70-220); POTASSIUM 3.3 mmol/L (3.5-5.1); SODIUM 146 mmol/L (135-144); TOTAL PROTEIN 7.5 g/dl (6.1-8.1)
[2018-04-02] MEDS: ENOXAPARIN 30 MG/0.3 ML SYG SC (08:25)
[2018-04-02] MEDS ORDERED: AMLODIPINE 10 MG TAB PO (10:00)
[2018-04-02] MEDS: SOD CHLORIDE 0.45% 1,000 ML IV (10:10)
[2018-04-02] MEDS: POTASSIUM CHLORIDE 20 MEQ POWDER FOR ORAL SOLN PO (17:05)
[2018-04-02] MEDS: HYDROCODONE/APAP (5/325) TAB PO (17:05)
[2018-04-02] MEDS: METOPROLOL (XL) 25 MG TAB PO (20:05)
[2018-04-03] MEDS: CIPROFLOXACIN 400MG/D5W 200 ML IVPB ×2 (00:42→09:43)
[2018-04-03] MEDS: METOPROLOL (XL) 25 MG TAB PO ×2 (09:00→09:43)
[2018-04-03] MEDS ORDERED: AMLODIPINE 10 MG TAB PO (09:00)
[2018-04-03] MEDS: ENOXAPARIN 30 MG/0.3 ML SYG SC (09:45)
[2018-04-03] MEDS: SOD CHLORIDE 0.45% 1,000 ML IV (10:04)
[2018-04-03 14:48] LABS: ALANINE AMINOTRANSFERASE 12 IU/L (13-69); ALBUMIN 3.2 g/dl (3.3-4.9); ALBUMIN/GLOBULIN RATIO 0.82; ALKALINE PHOSPHATASE 70 IU/L (42-121); ANION GAP 10 (8-16); ASPARTATE AMINO TRANSFERASE 21 IU/L (15-46); BILIRUBIN,INDIRECT 0.3 mg/dl (0-1.1); BILIRUBIN,TOTAL 0.3 mg/dl (0.2-1.3); BLOOD UREA NITROGEN 8 mg/dl (7-20); CALCIUM 8.8 mg/dl (8.4-10.2); CARBON DIOXIDE 25 mmol/L (21-31); CHLORIDE 103 mmol/L (97-110); CREATININE 0.75 mg/dl (0.44-1.00); GLUCOSE 143 mg/dl (70-220); POTASSIUM 3.6 mmol/L (3.5-5.1); SODIUM 134 mmol/L (135-144); TOTAL PROTEIN 7.1 g/dl (6.1-8.1)
[2018-04-04 06:18] LABS: ADD MAN DIFF? NO
[2018-04-04 06:24] LABS: WHITE BLOOD COUNT 10.5 10^3/ul (4.8-10.8)
[2018-04-04 06:24] LABS: BASOPHIL # 0.1 10^3/ul (0.0-0.1); BASOPHILS % 0.8 % (0.0-2.0); EOSINOPHILS # 0.4 10^3/ul (0.0-0.5); EOSINOPHILS % 4.1 % (0.0-7.0); HEMOGLOBIN 10.3 g/dl (12.0-16.0); LYMPHOCYTES # 2.4 10^3/ul (0.8-2.9); LYMPHOCYTES % 22.6 % (15.0-51.0); MEAN CORPUSCULAR HEMOGLOBIN 26.9 pg (29.0-33.0); MEAN CORPUSCULAR HGB CONC 32.2 g/dl (32.0-37.0); MEAN CORPUSCULAR VOLUME 83.6 fl (82.0-101.0); MONOCYTE # 0.8 10^3/ul (0.3-0.9); MONOCYTES % 7.5 % (0.0-11.0); NEUTROPHIL # 6.8 10^3/ul (1.6-7.5); NEUTROPHILS % 64.3 % (39.0-77.0); PLATELET COUNT 587 10^3/UL (140-415); RED BLOOD COUNT 3.83 10^6/ul (4.20-5.40); RED CELL DISTRIBUTION WIDTH 17.9 % (11.5-14.5)
[2018-04-04 06:55] LABS: ANION GAP 10 (8-16); BLOOD UREA NITROGEN 6 mg/dl (7-20); CARBON DIOXIDE 26 mmol/L (21-31); CHLORIDE 102 mmol/L (97-110); CREATININE 0.57 mg/dl (0.44-1.00); GLUCOSE 92 mg/dl (70-220); MAGNESIUM 1.5 mg/dl (1.7-2.5); PHOSPHORUS 3.3 mg/dl (2.5-4.9); POTASSIUM 3.4 mmol/L (3.5-5.1); SODIUM 135 mmol/L (135-144)
[2018-04-04] MEDS: METOPROLOL (XL) 25 MG TAB PO (08:59)
[2018-04-04] MEDS: ENOXAPARIN 30 MG/0.3 ML SYG SC (09:00)
[2018-04-04] MEDS ORDERED: POTASSIUM CHLORIDE 20 MEQ POWDER FOR ORAL SOLN PO (09:30)
[2018-04-04] MEDS: MAGNESIUM OXIDE 400 MG TAB PO (09:58)
[2018-04-04] MEDS: POTASSIUM CHLORIDE (SR) 20 MEQ TAB PO (11:10)
[2018-04-05] MEDS: METOPROLOL (XL) 25 MG TAB PO (08:16)
[2018-04-05] MEDS: ENOXAPARIN 30 MG/0.3 ML SYG SC (08:18)
[2018-04-05] MEDS: NACL 0.9% 3 ML SYG IV (08:20)
[2018-04-05] MEDS: ACETAMINOPHEN 325 MG TAB PO (12:49)
== END 2018-04-05 17:55 | disposition home health service (06) | DRG 641 ==
LOC: E/R 10:51 → MS2 14:40
DX: R62.7 Adult failure to thrive (principal); R64 Cachexia; Z68.1 Body mass index [BMI] 19.9 or less, adult; F03.90 Unspecified dementia, unspecified severity, without behavioral disturbance, psychotic disturbance, mood disturbance, and anxiety; I10 Essential (primary) hypertension; R53.1 Weakness; K21.9 Gastro-esophageal reflux disease without esophagitis
CPT/HCPCS: 36415; 71045; 80048; 80053; 81001; 82607; 83605; 83735; 84100; 84443; 84484; 85025; 85610; 85730; 87040; 87081; 87086; 93005; 96374; 96375; 97110; 97116; 97162; 97167; 97530; 99291-25